=== PATIENT | female | born 1950 | race Caucasian/White ===

== ENCOUNTER 2017-06-05 13:26 | Emergency (ER) | payer OTHER ==
[2017-06-05 13:32] VITALS: TEMP 98.1; BMI 32.5
--- NOTE | 2017-06-05 14:07 | PDOC ---
History of Present Illness - General Chief Complaint: Pain, Acute Stated Complaint: ABD PAIN Time Seen by Provider: 06/05/17 13:36 History Source: Patient Exam Limitations: Language Barrier - History of Present Illness Initial Comments: 06/05/17 14:09 CC: Acute Exacerbation of chronic abdominal pain Patient is a 66 y.o. female with a PMH of HTN, GERD and recent (04/2017) breast reduction surgery who presents today with epigastric "hot" 10/10 nightime abdominal pain that radiates to her kneecaps B/L. Patient states that the pain has been present every night for 4 months previous and occurs when she lays down to sleep but is not relieved by sitting upright nor is the pain present during the daytime if she lays down flat. Patient states the pain has usually subsided by the time she awakes, however the pain was so severe overnight and was present this morning prompting her visit to the ED. PMH: HTN, GERD Surgical: Gastric Bypass, Breast reduction, either appendectomy or cholecystectomy Social: (-) nicotine; (-) alcohol; (-) marijuana/cocaine/heroin Timing/Duration: 4-6 hours Severity: moderate Past History - Past Medical History Allergies/Adverse Reactions: Allergies Allergy/AdvReac Type Severity Reaction Status Date / Time No Known Allergies Allergy Verified 06/05/17 13:32 Home Medications: Ambulatory Orders Acetaminophen [Tylenol -] 500 mg PO Q8H #15 tablet 06/05/17 HTN: Yes Other medical history: ARTHRITIS - Psycho/Social/Smoking Cessation Hx Suicidal Ideation: No Smoking History: Never smoked Hx Alcohol Use: No Drug/Substance Use Hx: No Review of Systems - Review of Systems Constitutional: No: Chills, Diaphoresis, Loss of Appetite, Night Sweats, Weakness HEENTM: No: Eye Pain, Blurred Vision, Hearing Loss, Throat Pain Respiratory: No: Cough, Orthopnea, Shortness of Breath, Productive cough, Hemoptysis Cardiac (ROS): No: Chest Pain, Edema, Lightheadedness, Palpitations ABD/GI: Yes: Abdominal cramping. No: Blood Streaked Bowels, Diarrhea, Nausea, Vomiting : No: Burning, Dysuria, Discharge, Hematuria Musculoskeletal: No: Back Pain, Gout, Joint Swelling, Muscle Pain Integumentary: No: Bruising, Erythema, Pruritus, Rash Neurological: No: Headache, Numbness, Tingling, Dizziness Psychiatric: No: Anxiety, Depression Endocrine: No: Intolerance to Cold, Intolerance to Heat, Increased Thirst, Increased Urine All Other Systems: Reviewed and Negative *Physical Exam - Vital Signs Last Vital Signs Temp Pulse Resp BP Pulse Ox 98.1 F 76 16 146/76 96 06/05/17 13:29 06/05/17 13:29 06/05/17 13:29 06/05/17 13:29 06/05/17 13:29 - Physical Exam General Appearance: Yes: Appropriately Dressed HEENT: positive: Pharynx Normal Neck: positive: Trachea midline, Supple Respiratory/Chest: positive: Lungs Clear, Normal Breath Sounds Cardiovascular: positive: Regular Rhythm, Regular Rate, S1, S2 Gastrointestinal/Abdominal: positive: Normal Bowel Sounds, Flat, Other ( Epigastric TTP; no TTP in upper or lower abdominal quadrants) Musculoskeletal: positive: Normal Inspection 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 female who presents with worsening of 4 months of chronic abdominal pain. Differential diagnosis includes exacerbation of GERD, pancreas pathology, peptic ulcer disease. CT abdomen was unremarkable and upon further history taking patient notes she had an endoscopy in the previous 1-2 years that showed no ulcers. As patient has a h/o GERD and notes that she often eats laying down in bed and her pain occurs shortly after dinner, her SiSx are likely 2/2 to GERD. Patient instructed to take Maalox for symptomatic control and counseled on the importance of eating while upright and avoiding foods that exacerbate her symptoms including hot liquids and spicy foods. Patient to f/u with her PCP and GI. *DC/Admit/Observation/Transfer Diagnosis at time of Disposition: GERD (gastroesophageal reflux disease) - Discharge Dispostion Disposition: HOME Condition at time of disposition: Improved - Prescriptions Prescriptions: Acetaminophen [Tylenol -] 500 mg PO Q8H #15 tablet - Patient Instructions Printed Discharge Instructions: DI for Gastroesophageal Reflux Disease (GERD), GERD Diet Additional Instructions: Please return to the ED should you experience severe abdominal pain, chest pain , shortness of breath or continuous vomiting. 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 - Attestations Physician Attestion: 06/05/17 18:45 I, Dr. Acacia Lloyd, attest that this document has been prepared under my direction and personally reviewed by me in its entirety. I further attest, that it accurately reflects all work, treatment, procedures and medical decision -making performed by me.
[2017-06-05] MEDS ORDERED: diphenhydrAMINE HCL 25 MG CAPSULE (FP) PO ONE (14:23)
[2017-06-05] MEDS ORDERED: LIDOCAINE VISCOUS 2% ORAL/TOP 20 ML UNIT-DOSE CUP MM ONE (14:23)
[2017-06-05] MEDS ORDERED: diphenhydrAMINE HCL 12.5 MG/5 ML UNIT-DOSE CUPS PO ONE (14:24)
[2017-06-05] MEDS ORDERED: MAG HYDROX/AL HYDROX/SIMETH 30 ML UNIT-DOSE CUP PO ONE (14:24)
[2017-06-05] MEDS ORDERED: ASPIRIN 81 MG CHEWABLE TABLETS PO ONE (14:29)
[2017-06-05] MEDS ORDERED: MAG HYDROX/AL HYDROX/SIMETH 30 ML UNIT-DOSE CUP ONE (14:38)
[2017-06-05] MEDS ORDERED: diphenhydrAMINE HCL 12.5 MG/5 ML BULK BOTTLE ONE (14:38)
[2017-06-05 15:14] LABS: BASOPHIL 0.9 % (0-2.0); EOSINOPHIL 4.5 % (0-4.5); MCH 27.3 pg (25.7-33.7); MCHC 32.9 g/dl (32.0-36.0); MEAN CELL VOLUME 82.7 fl (80-96); MEAN PLT VOLUME 7.5 fl (7.5-11.1); NEUTROPHILS 58.6 % (42.8-82.8); PLATELET COUNT 334 K/MM3 (134-434); RDW 14.8 % (11.6-15.6); WHITE BLOOD COUNT 6.3 K/mm3 (4.0-10.0)
[2017-06-05 15:41] LABS: ALBUMIN 3.3 g/dl (3.4-5.0); ANION GAP 8 (8-16); CALCIUM 9.1 mg/dL (8.5-10.1); CO2 29 mmol/L (21-32); GLUCOSE,RANDOM 113 mg/dL (74-106); SGPT/ALT 25 U/L (12-78)
[2017-06-05 15:42] LABS: TROPONIN I < 0.02 ng/ml (0.00-0.05)
[2017-06-05 15:44] LABS: ALK PHOS 100 U/L (45-117); BILIRUBIN,TOTAL 0.5 mg/dL (0.2-1.0); CREATININE 0.8 mg/dL (0.55-1.02); SGOT/AST 21 U/L (15-37)
--- NOTE | 2017-06-05 15:58 | PDOC ---
Attending Attestation - Resident Resident Name: Acacia Lloyd - ED Attending Attestation I have performed the following: I have examined & evaluated the patient, The case was reviewed & discussed with the resident, I agree w/resident's findings & plan - HPI HPI: 06/05/17 15:54 66 yo F with h/o prior cholecystecomty , here wtih c/o epigastric pain. started 4 months ago, got worse last pm. no vomiting, no chest pain no sob. no f/c. has had endoscopy in the past states was normal. no change to bowel movement. no other mod factors. - Physicial Exam PE: 06/05/17 15:58 on exam awake alert lungs clear heart RRR no mrg abd soft mild epigastric ttp, no rebound no guarding. no cva tenderness. ext wwp. nuero alert oriented x 3 - Medical Decision Making 06/05/17 15:58 66 yo F with epigastric pain x 4 mo, likely gerd, differentiial includes pancreatic prob, ulcer, gerd, atypical angina, . ekg labs ct a/p gi cocktail. trop
[2017-06-05 16:16] LABS: AMYLASE 54 U/L (25-115)
[2017-06-05 16:17] LABS: TROPONIN I < 0.02 ng/ml (0.00-0.05)
--- NOTE | 2017-06-05 16:57 | EKG ---
Test Reason : Blood Pressure : / mmHG Vent. Rate : 069 BPM Atrial Rate : 069 BPM P-R Int : 168 ms QRS Dur : 100 ms QT Int : 404 ms P-R-T Axes : 049 006 032 degrees QTc Int : 432 ms NORMAL SINUS RHYTHM NORMAL ECG NO PREVIOUS ECGS AVAILABLE Confirmed by LISA LUNDBERG MD ([id number]) on 06/05/2017 4:57:00 PM Referred By: Confirmed By:LISA LUNDBERG MD
[2017-06-05 19:03] VITALS: BP 137/74; PULSE 77
== END 2017-06-05 19:01 | disposition home or self-care (01) ==
LOC: JER 13:26
DX: K21.9 Gastro-esophageal reflux disease without esophagitis (principal)
CPT/HCPCS: 36415; 74177-TC; 80053; 82150; 82550; 83690; 84484; 85025; 93005; 93010; 99283-25